=== PATIENT | male | born 1970 | race Caucasian/White ===

== ENCOUNTER 2019-10-26 03:35 | Inpatient (IN) ==
[2019-10-26] MEDS ORDERED: Naloxone 0.4 MG/ML INJ IVP PRN (04:07)
[2019-10-26] MEDS ORDERED: Ondansetron 4 MG/2 ML VIAL IVP PRN (04:07)
[2019-10-26] MEDS ORDERED: *HR* Heparin 5,000 UNIT/ML VIAL IVP PRN ×2 (04:09)
[2019-10-26] MEDS: Acetaminophen 325 MG TABLET PO PRN (04:48)
[2019-10-26] MEDS: Heparin 25,000UNIT/250ML 1/2NS 25,000 UNIT/250 ML IV.SOLN IVC SCH ×2 (04:57→17:42)
[2019-10-26 05:13] LABS: Basophils % 0.4 %; Eosinophils # 0.2 K/mcL (0.0-0.6); Eosinophils % 2.5 %; Hematocrit 44.8 % (37.5-50.1); Hemoglobin 15.3 g/dL (12.9-16.9); Immature Granulocytes % 0.8 % (0-4); Lymphocytes # 3.8 K/mcL (0.6-4.6); Lymphocytes % 42.5 %; Mean Corpuscular HGB Conc 34.2 g/dL (31.6-35.5); Mean Corpuscular Hemoglobin 31.8 pg (28.0-33.3); Mean Corpuscular Volume 93.1 fL (83.0-100.0); Mean Platelet Volume 10.2 fL (9.4-12.4); Monocytes # 0.6 K/mcL (0.0-1.3); Monocytes % 6.5 %; Neutrophils # 4.3 K/mcL (1.6-8.9); Platelet Count 181 K/mcL (140-400); Red Blood Count 4.81 M/mcL (4.19-5.50); Red Cell Distribution Width 12.3 % (11.5-14.5); Segmented Neutrophils % 47.3 %
[2019-10-26 05:20] LABS: Prothrombin Time 11.3 Seconds (9.4-12.1)
[2019-10-26 05:37] LABS: Activated Partial Thrombo Time 123.3 Seconds (26.0-36.0); Heparin anti-factor XA UFH 1.03 IU/mL (0.30-0.70)
[2019-10-26 05:43] LABS: Alanine Aminotransferase 24 Units/L (7-52); Albumin 3.8 g/dL (3.5-5.7); Albumin/Globulin Ratio 1.3 (1.1-2.2); Alkaline Phosphatase 90 Units/L (34-104); Aspartate Amino Transferase 22 Units/L (13-39); BUN/Creatinine Ratio 13 (6-26); Bilirubin,Total 0.5 mg/dL (0.3-1.0); Blood Urea Nitrogen 11 mg/dL (6-20); Calcium 9.1 mg/dL (8.6-10.3); Carbon Dioxide 21 mEq/L (23-29); Chloride 102 mEq/L (98-107); Glucose 91 mg/dL (70-105); Osmolality,Calculated 287 (280-300); Potassium 3.9 mEq/L (3.5-5.1); Sodium 139 mEq/L (136-145); Total Protein 6.8 g/dL (6.4-8.9); Troponin I 0.04 ng/mL (< 0.04); eGFR For African Americans > 60 (> 60); eGFR For Non-African Americans > 60 (> 60)
[2019-10-26] MEDS ORDERED: Isovue-370 500 ML BOTTLE IVP ONE (05:53)
[2019-10-26 06:56] LABS: Bilirubin,Urine Negative (Negative); Blood,Urine Negative (Negative); Clarity,Urine Clear (Clear); Color,Urine Light-Yellow (Yellow); Glucose,Urine (UA) Normal (Normal); Ketones,Urine Trace mg/dL (Negative); Leukocyte Esterase,Urine Negative (Negative); Nitrite,Urine Negative (Negative); PH,Urine 5.5 pH Units (5.0-8.0); Protein,Urine Negative (Neg-Trace); Specific Gravity,Urine 1.028 (1.010-1.025); Urobilinogen,Urine Normal (Normal)
[2019-10-26] MEDS ORDERED: Perflutren Lipid Microsphere 1.3 ML in 0.9 % Sodium Chloride 8.7 ML IVP PRN (07:32)
[2019-10-26] MEDS ORDERED: *HR* HYDROcodone/Acet 5/325 mg TABLET PO PRN (07:33)
[2019-10-26] MEDS ORDERED: Albuterol 2.5 MG/3 ML NEBULIZER IH PRN (07:33)
[2019-10-26] MEDS ORDERED: *HR* Warfarin 5 MG TABLET PO ONE (18:00)
[2019-10-26] MEDS ORDERED: Warfarin perPT PO SCH (18:00)
[2019-10-26] MEDS ORDERED: Mag Hydrox/Al Hydrox/Simeth 30 ML UDC PO PRN (19:50)
[2019-10-27] MEDS: carvediloL 6.25 MG TABLET PO SCH ×2 (08:55→16:40)
[2019-10-27] MEDS ORDERED: lisinopriL 5 MG TABLET PO SCH (09:00)
[2019-10-27] MEDS: Heparin 25,000UNIT/250ML 1/2NS 25,000 UNIT/250 ML IV.SOLN IVC SCH (10:09)
[2019-10-27 10:29] LABS: Prothrombin Time 11.7 Seconds (9.4-12.1)
[2019-10-27 10:34] LABS: Activated Partial Thrombo Time 45.5 Seconds (26.0-36.0)
[2019-10-27 10:35] LABS: Basophils % 0.5 %; Eosinophils # 0.2 K/mcL (0.0-0.6); Eosinophils % 2.6 %; Hematocrit 45.1 % (37.5-50.1); Hemoglobin 15.4 g/dL (12.9-16.9); Immature Granulocytes % 0.7 % (0-4); Lymphocytes # 2.6 K/mcL (0.6-4.6); Lymphocytes % 31.9 %; Mean Corpuscular HGB Conc 34.1 g/dL (31.6-35.5); Mean Corpuscular Volume 93.6 fL (83.0-100.0); Monocytes # 0.6 K/mcL (0.0-1.3); Monocytes % 7.4 %; Neutrophils # 4.6 K/mcL (1.6-8.9); Platelet Count 197 K/mcL (140-400); Red Blood Count 4.82 M/mcL (4.19-5.50); Red Cell Distribution Width 12.4 % (11.5-14.5); Segmented Neutrophils % 56.9 %; White Blood Count 8.1 K/mcL (4.3-11.1)
[2019-10-27 10:57] LABS: Alanine Aminotransferase 23 Units/L (7-52); Albumin/Globulin Ratio 1.3 (1.1-2.2); Alkaline Phosphatase 87 Units/L (34-104); Aspartate Amino Transferase 20 Units/L (13-39); BUN/Creatinine Ratio 14 (6-26); Bilirubin,Total 0.5 mg/dL (0.3-1.0); Blood Urea Nitrogen 14 mg/dL (6-20); Calcium 9.5 mg/dL (8.6-10.3); Carbon Dioxide 26 mEq/L (23-29); Chloride 103 mEq/L (98-107); Globulin 3.1 g/dL (2.4-3.5); Glucose 111 mg/dL (70-105); Osmolality,Calculated 285 (280-300); Potassium 4.2 mEq/L (3.5-5.1); Sodium 137 mEq/L (136-145); Total Protein 7.1 g/dL (6.4-8.9); Troponin I 0.04 ng/mL (< 0.04); eGFR For African Americans > 60 (> 60); eGFR For Non-African Americans > 60 (> 60)
[2019-10-27] MEDS: Furosemide 20 MG/2 ML VIAL IVP SCH (12:57)
[2019-10-27] MEDS ORDERED: *HR* Warfarin 5 MG TABLET PO ONE (18:00)
[2019-10-27] MEDS: lisinopriL 5 MG TABLET PO SCH (22:45)
[2019-10-27] MEDS: Acetaminophen 325 MG TABLET PO PRN (23:05)
[2019-10-28] MEDS: Heparin 25,000UNIT/250ML 1/2NS 25,000 UNIT/250 ML IV.SOLN IVC SCH ×2 (04:40→19:09)
[2019-10-28 04:59] LABS: Basophils % 0.5 %; Eosinophils # 0.3 K/mcL (0.0-0.6); Eosinophils % 3.1 %; Hematocrit 44.5 % (37.5-50.1); Hemoglobin 15.1 g/dL (12.9-16.9); Immature Granulocytes % 0.9 % (0-4); Lymphocytes # 3.3 K/mcL (0.6-4.6); Lymphocytes % 40.5 %; Mean Corpuscular HGB Conc 33.9 g/dL (31.6-35.5); Mean Corpuscular Hemoglobin 32.1 pg (28.0-33.3); Mean Corpuscular Volume 94.5 fL (83.0-100.0); Mean Platelet Volume 9.6 fL (9.4-12.4); Monocytes # 0.6 K/mcL (0.0-1.3); Monocytes % 7.9 %; Neutrophils # 3.8 K/mcL (1.6-8.9); Platelet Count 174 K/mcL (140-400); Red Blood Count 4.71 M/mcL (4.19-5.50); Red Cell Distribution Width 12.4 % (11.5-14.5); Segmented Neutrophils % 47.1 %; White Blood Count 8.1 K/mcL (4.3-11.1)
[2019-10-28 05:02] LABS: Prothrombin Time 11.4 Seconds (9.4-12.1)
[2019-10-28 05:08] LABS: BUN/Creatinine Ratio 16 (6-26); Blood Urea Nitrogen 18 mg/dL (6-20); Calcium 9.5 mg/dL (8.6-10.3); Carbon Dioxide 33 mEq/L (23-29); Chloride 101 mEq/L (98-107); Glucose 116 mg/dL (70-105); Osmolality,Calculated 289 (280-300); Potassium 4.1 mEq/L (3.5-5.1); Sodium 138 mEq/L (136-145); eGFR For African Americans > 60 (> 60); eGFR For Non-African Americans > 60 (> 60)
[2019-10-28] MEDS: carvediloL 6.25 MG TABLET PO SCH ×2 (08:33→16:26)
[2019-10-28] MEDS: Furosemide 20 MG/2 ML VIAL IVP SCH ×2 (08:34→20:33)
[2019-10-28] MEDS: lisinopriL 5 MG TABLET PO SCH ×2 (08:34→20:32)
[2019-10-28] MEDS ORDERED: SODIUM CHLORIDE/NAHCO3/KCL/PEG 4,000 ML SOLN.RECON PO ONE (18:58)
[2019-10-28] MEDS: Acetaminophen 325 MG TABLET PO PRN (20:48)
[2019-10-29 02:10] LABS: INR 1.1; Prothrombin Time 12.5 Seconds (9.4-12.1)
[2019-10-29 02:17] LABS: Hematocrit 47.2 % (37.5-50.1); Hemoglobin 16.2 g/dL (12.9-16.9)
[2019-10-29 02:26] LABS: BUN/Creatinine Ratio 13 (6-26); Blood Urea Nitrogen 12 mg/dL (6-20); Calcium 9.6 mg/dL (8.6-10.3); Carbon Dioxide 29 mEq/L (23-29); Chloride 99 mEq/L (98-107); Glucose 109 mg/dL (70-105); Magnesium 1.8 mg/dL (1.6-2.6); Osmolality,Calculated 282 (280-300); Phosphorous 3.6 mg/dL (2.7-4.5); Potassium 4.2 mEq/L (3.5-5.1); Sodium 136 mEq/L (136-145); eGFR For African Americans > 60 (> 60); eGFR For Non-African Americans > 60 (> 60)
[2019-10-29] MEDS: lisinopriL 5 MG TABLET PO SCH (07:29)
[2019-10-29] MEDS: Furosemide 20 MG/2 ML VIAL IVP SCH (07:30)
[2019-10-29] MEDS: carvediloL 6.25 MG TABLET PO SCH (07:30)
[2019-10-29] MEDS ORDERED: *HR* Midazolam HCl 2 MG/2 ML VIAL ONE (09:49)
[2019-10-29] MEDS: Heparin 25,000UNIT/250ML 1/2NS 25,000 UNIT/250 ML IV.SOLN IVC SCH (11:00)
[2019-10-29 12:11] VITALS: BP 117/77
[2019-10-29] MEDS ORDERED: *HR* Rivaroxaban 15 MG TABLET PO ONE (12:30)
[2019-10-29] MEDS: *HR* Rivaroxaban 15 MG TABLET PO ONE ×2 (13:09→13:16)
== END 2019-10-29 14:53 | disposition home or self-care (01) | DRG 175 ==
LOC: 2ANU → SUATTDRO 03:35 → 2ANU 10-27 19:57
PROVIDERS: ADMIT Family Medicine; ATTEND Internal Medicine
PROC: ENDOCBX (2019-10-29 13:40)

== ENCOUNTER 2019-12-23 06:09 | Inpatient (IN) ==
[2019-12-23] MEDS ORDERED: CeFAZolin Syr 2,000MG/20 ML 2,000 MG/20 ML SYRINGE IVPB ONE (06:26)
[2019-12-23] MEDS ORDERED: Ringers Solution, Lactated 1,000 ML IVC SCH (06:30)
[2019-12-23] MEDS ORDERED: Heparin 1,000 UNITS/500 mL 500 ML ONE (06:48)
[2019-12-23] MEDS ORDERED: Lidocaine -MPF 2% 2 ML VIAL ONE ×2 (06:49→06:50)
[2019-12-23] MEDS ORDERED: Dexamethasone 4 MG/ML VIAL ONE (06:49)
[2019-12-23] MEDS ORDERED: *HR* FentaNYL (PF) 100 MCG/2 ML VIAL ONE (06:49)
[2019-12-23] MEDS ORDERED: *HR* Propofol 200 MG/20 ML VIAL IVP ONE (06:49)
[2019-12-23] MEDS ORDERED: Ondansetron 4 MG/2 ML VIAL ONE (06:49)
[2019-12-23] MEDS ORDERED: *HR* Midazolam HCl 2 MG/2 ML VIAL ONE (06:49)
[2019-12-23] MEDS ORDERED: Lidocaine -MPF 4% 5 ML AMPUL ONE (06:50)
[2019-12-23] MEDS ORDERED: *HR* Rocuronium Bromide 50 MG/5 ML VIAL ONE ×3 (06:50→09:58)
[2019-12-23] MEDS ORDERED: *HR* PHENYLEPHRINE 1,000 MCG/10 ML SYRINGE IVP ONE (06:50)
[2019-12-23] MEDS ORDERED: *HR* Succinylcholine 200 MG/10 ML VIAL IVP ONE (06:50)
[2019-12-23] MEDS ORDERED: EPHEDrine 50 MG/ML VIAL ONE (06:55)
[2019-12-23] MEDS ORDERED: *HR* OxyCODONE Immed Rel 5 MG TABLET PO PRN (07:16)
[2019-12-23] MEDS ORDERED: Ondansetron 4 MG/2 ML VIAL IVP PRN (07:16)
[2019-12-23] MEDS ORDERED: CeFAZolin Syr 3,000MG/30 ML 3,000 MG/30 ML SYRINGE IVPB ONE (07:17)
[2019-12-23] MEDS ORDERED: *HR* Vasopressin 20 UNIT/ML VIAL ONE (08:24)
[2019-12-23] MEDS ORDERED: Albumin Human 5% 0 GM/0 ML IV.SOLN ONE (08:24)
[2019-12-23] MEDS ORDERED: *HR* HYDROMORPHONE 2 MG/ML VIAL ONE (08:51)
[2019-12-23] MEDS: *HR* HYDROmorphone PF 0.5 MG/0.5 ML SYRINGE IVP PRN ×4 (12:00→12:45)
[2019-12-23] MEDS ORDERED: *HR* Promethazine 25 MG/ML VIAL IVP PRN (12:18)
[2019-12-23] MEDS ORDERED: Acetaminophen IV 1,000 MG/100 ML INFUS..BTL IVPB ONE (12:39)
[2019-12-23] MEDS ORDERED: *HR* Labetalol 20 MG/4 ML SYRINGE IVP PRN (12:39)
[2019-12-23] MEDS ORDERED: *HR* OxyCODONE Immed Rel 5 MG TABLET PO ONE (13:27)
[2019-12-23] MEDS ORDERED: Naloxone 0.4 MG/ML INJ IVP PRN (13:56)
[2019-12-23] MEDS ORDERED: Acetaminophen 325 MG TABLET PO PRN (13:56)
[2019-12-23] MEDS ORDERED: 0.9 % Sodium Chloride 1,000 ML IVC SCH ×2 (13:56→15:45)
[2019-12-23] MEDS: 0.9 % Sodium Chloride 1,000 ML IVC SCH (16:54)
[2019-12-23] MEDS: carvediloL 6.25 MG TABLET PO SCH (17:02)
[2019-12-23] MEDS: *HR* OxyCODONE/APAP 5/325 TABLET PO PRN (17:02)
[2019-12-23] MEDS: ceFAZolin 3,000 MG in 0.9 % Sodium Chloride 100 ML IVPB SCH (17:04)
[2019-12-23] MEDS: *HR* Heparin 5,000 UNIT/ML VIAL SQ SCH (21:32)
[2019-12-24] MEDS: ceFAZolin 3,000 MG in 0.9 % Sodium Chloride 100 ML IVPB SCH (00:34)
[2019-12-24 05:19] LABS: Basophils % 0.2 %; Hematocrit 39.8 % (37.5-50.1); Hemoglobin 12.9 g/dL (12.9-16.9); Immature Granulocytes % 0.5 % (0-4); Lymphocytes # 1.6 K/mcL (0.6-4.6); Lymphocytes % 14.3 %; Mean Corpuscular HGB Conc 32.4 g/dL (31.6-35.5); Mean Corpuscular Hemoglobin 30.7 pg (28.0-33.3); Mean Corpuscular Volume 94.8 fL (83.0-100.0); Mean Platelet Volume 10.1 fL (9.4-12.4); Monocytes # 0.9 K/mcL (0.0-1.3); Monocytes % 8.2 %; Neutrophils # 8.5 K/mcL (1.6-8.9); Platelet Count 188 K/mcL (140-400); Red Cell Distribution Width 12.2 % (11.5-14.5); Segmented Neutrophils % 76.8 %
[2019-12-24 05:39] LABS: BUN/Creatinine Ratio 12 (6-26); Blood Urea Nitrogen 17 mg/dL (6-20); Calcium 9.2 mg/dL (8.6-10.3); Carbon Dioxide 28 mEq/L (23-29); Chloride 101 mEq/L (98-107); Glucose 113 mg/dL (70-105); Osmolality,Calculated 284 (280-300); Potassium 4.2 mEq/L (3.5-5.1); Sodium 136 mEq/L (136-145); eGFR For African Americans > 60 (> 60); eGFR For Non-African Americans 51 (> 60)
[2019-12-24] MEDS: *HR* Heparin 5,000 UNIT/ML VIAL SQ SCH (05:49)
[2019-12-24] MEDS: *HR* OxyCODONE/APAP 5/325 TABLET PO PRN (07:55)
[2019-12-24] MEDS: carvediloL 6.25 MG TABLET PO SCH ×2 (07:55→17:38)
[2019-12-24] MEDS ORDERED: *HR* Heparin 5,000 UNIT/ML VIAL IVP PRN ×2 (10:38)
[2019-12-24] MEDS: 0.9 % Sodium Chloride 1,000 ML IVC SCH (11:26)
[2019-12-24] MEDS ORDERED: *HR* HYDROmorphone 2 MG/ML SYRINGE IVP ONE (12:11)
[2019-12-24] MEDS: Heparin 25,000UNIT/250ML 1/2NS 25,000 UNIT/250 ML IV.SOLN IVC SCH (12:55)
[2019-12-24] MEDS ORDERED: *HR* OxyCODONE/APAP 5/325 TABLET PO PRN (14:57)
[2019-12-24] MEDS: Simethicone 80 MG TAB.CHEW PO PRN (17:44)
[2019-12-25] MEDS: Heparin 25,000UNIT/250ML 1/2NS 25,000 UNIT/250 ML IV.SOLN IVC SCH (02:21)
[2019-12-25 02:50] LABS: Hematocrit 40.4 % (37.5-50.1); Hemoglobin 13.3 g/dL (12.9-16.9); Mean Corpuscular HGB Conc 32.9 g/dL (31.6-35.5); Mean Corpuscular Hemoglobin 31.3 pg (28.0-33.3); Mean Corpuscular Volume 95.1 fL (83.0-100.0); Mean Platelet Volume 9.5 fL (9.4-12.4); Platelet Count 166 K/mcL (140-400); Red Blood Count 4.25 M/mcL (4.19-5.50); Red Cell Distribution Width 12.1 % (11.5-14.5); White Blood Count 10.7 K/mcL (4.3-11.1)
[2019-12-25 03:09] LABS: Phosphorous 3.4 mg/dL (2.7-4.5)
[2019-12-25 03:10] LABS: Calcium 9.4 mg/dL (8.6-10.3); Potassium 4.2 mEq/L (3.5-5.1)
[2019-12-25] MEDS: Simethicone 80 MG TAB.CHEW PO PRN ×2 (07:03→16:34)
[2019-12-25] MEDS: Ondansetron 4 MG/2 ML VIAL IVP PRN (07:03)
[2019-12-25] MEDS: carvediloL 6.25 MG TABLET PO SCH ×2 (07:51→16:34)
[2019-12-25] MEDS: 0.9 % Sodium Chloride 1,000 ML IVC SCH ×2 (07:53→18:33)
[2019-12-25] MEDS ORDERED: 0.9 % Sodium Chloride 500 ML IVC ONE (08:19)
[2019-12-25] MEDS ORDERED: Temazepam 15 MG CAPSULE PO PRN (10:56)
[2019-12-25] MEDS: Acetaminophen IV 1,000 MG/100 ML INFUS..BTL IVPB SCH ×3 (13:14→23:49)
[2019-12-25] MEDS ORDERED: *HR* Rivaroxaban 10 MG TABLET PO SCH (17:00)
[2019-12-26] MEDS: Acetaminophen IV 1,000 MG/100 ML INFUS..BTL IVPB SCH (05:34)
[2019-12-26] MEDS: Ondansetron 4 MG/2 ML VIAL IVP PRN ×2 (05:37→12:50)
[2019-12-26 06:38] LABS: Hematocrit 39.8 % (37.5-50.1); Hemoglobin 12.9 g/dL (12.9-16.9); Mean Corpuscular HGB Conc 32.4 g/dL (31.6-35.5); Mean Corpuscular Hemoglobin 30.7 pg (28.0-33.3); Mean Corpuscular Volume 94.8 fL (83.0-100.0); Mean Platelet Volume 9.3 fL (9.4-12.4); Platelet Count 169 K/mcL (140-400); Red Cell Distribution Width 12.1 % (11.5-14.5); White Blood Count 7.7 K/mcL (4.3-11.1)
[2019-12-26 07:02] LABS: BUN/Creatinine Ratio 11 (6-26); Blood Urea Nitrogen 16 mg/dL (6-20); Calcium 9.2 mg/dL (8.6-10.3); Carbon Dioxide 29 mEq/L (23-29); Chloride 103 mEq/L (98-107); Glucose 111 mg/dL (70-105); Osmolality,Calculated 286 (280-300); Potassium 4.6 mEq/L (3.5-5.1); Sodium 137 mEq/L (136-145); eGFR For African Americans > 60 (> 60); eGFR For Non-African Americans 51 (> 60)
[2019-12-26] MEDS: carvediloL 6.25 MG TABLET PO SCH (09:24)
[2019-12-26 10:45] VITALS: BP 131/60
[2019-12-26] MEDS ORDERED: Acetaminophen 325 MG TABLET PO PRN (11:40)
== END 2019-12-26 13:40 | disposition home or self-care (01) | DRG 657 ==
LOC: SAMDAY 06:09 → SUATTDRO 13:51 → 3NENU 13:51
PROVIDERS: ADMIT Urology; ATTEND Urology